=== PATIENT | male | born 1960 | race Caucasian/White ===

== ENCOUNTER 2020-07-31 19:36 | Inpatient (IN) | payer OTHER ==
--- NOTE | 2020-07-31 21:30 | PDOC ---
History of Present Illness - General Chief Complaint: Nausea Stated Complaint: SENT BY URGENT CARE Time Seen by Provider: 07/31/20 20:05 - History of Present Illness Initial Comments: 07/31/20 21:21 59M with remote history of hernia repair transfered from urgent care with concern for SBO. Patient states he ate spicy falafel two days ago, then began having abdominal pain, non-bloody vomiting, chills, sweating. These symptoms r esolved, but he has felt increasingly bloated and noticed abdominal distension. Passing gas and having normal bowel movements, last one was earlier this afternoon. Able to tolerate solids and liquids in small quantities. PMH/PSH: as above Meds: statin, finasteride Allergies: amoxicillin ROS GENERAL/CONSTITUTIONAL: No fever or chills. No weakness. HEAD, EYES, EARS, NOSE AND THROAT: No change in vision. No ear pain or discharge. No sore throat. CARDIOVASCULAR: No chest pain or shortness of breath RESPIRATORY: No cough, wheezing, or hemoptysis. GASTROINTESTINAL: No nausea, vomiting, diarrhea or constipation. bloating GENITOURINARY: No dysuria, frequency, or change in urination. MUSCULOSKELETAL: No joint or muscle swelling or pain. No neck or back pain. SKIN: No rash NEUROLOGIC: No headache, vertigo, loss of consciousness, or change in strength/sensation. ENDOCRINE: No increased thirst. No abnormal weight change HEMATOLOGIC/LYMPHATIC: No anemia, easy bleeding, or history of blood clots. ALLERGIC/IMMUNOLOGIC: No hives or skin allergy. PE GENERAL: Awake, alert, and fully oriented, in no acute distress HEAD: No signs of trauma, normocephalic, atraumatic EYES: PERRLA, EOMI, sclera anicteric, conjunctiva clear ENT: Auricles normal inspection, hearing grossly normal, nares patent, oropharynx clear without exudates. Moist mucosa NECK: Normal ROM, supple, no lymphadenopathy, JVD, or masses LUNGS: No distress, speaks full sentences, clear to auscultation bilaterally HEART: Regular rate and rhythm, normal S1 and S2, no murmurs, rubs or gallops, peripheral pulses normal and equal bilaterally. ABDOMEN: Soft, distended, epigastric tenderness without guarding or rebound EXTREMITIES : Normal inspection, Normal range of motion, no edema. No clubbing or cyanosis. NEUROLOGICAL: Cranial nerves II through XII grossly intact. Normal speech, normal gait, no focal sensorimotor deficits SKIN: Warm, Dry, normal turgor, no rashes or lesions noted Vital Signs Temp Pulse Resp BP Pulse Ox 97.8 F 89 19 141/94 98 07/31/20 19:40 07/31/20 19:40 07/31/20 19:40 07/31/20 19:40 07/31/20 19:40 59M with remote history of hernia repair transfered from urgent care with concern for SBO. Exam notable for abdominal distension and epigastric tenderness. Patient comes with labs from urgent care showing normal kidney function and no white count. Will r/o SBO. DDx also includes gastroenteritis, ne phrolithiasis, pancreatitis -EKG -CBC, CMP, coags, UA, T&S -CT A/P with oral and IV contrast 07/31/20 22:26 EKG: NSR, rate 93, normal axis, QTc 457, no ischemic ST-T changes Labs: notable for Hgb 17.3 (likley hemoconcentrated in the setting of decreased PO intake), total bilirubin 1.5 Laboratory Tests 07/31/20 07/31/20 07/31/20 21:00 21:00 21:00 WBC 6.5 RBC 5.53 Hgb 17.3 H Hct 49.2 H MCV 89.0 MCH 31.3 MCHC 35.2 RDW 13.1 Plt Count 208 MPV 8.8 Absolute Neuts (auto) 4.5 Neutrophils % 69.2 Lymphocytes % 15.2 Monocytes % 14.2 H Eosinophils % 0.9 Basophils % 0.5 Nucleated RBC % 0 PT with INR 12.70 INR 1.08 PTT (Actin FS) 28.2 Sodium 138 Potassium 4.0 Chloride 103 Carbon Dioxide 28 Anion Gap 7 L BUN 17.5 Creatinine 0.8 Est GFR (CKD-EPI)AfAm 111.74 Est GFR (CKD-EPI)NonAf 96.41 Random Glucose 98 Calcium 9.2 Total Bilirubin 1.5 H AST 16 ALT 24 Alkaline Phosphatase 101 Total Protein 7.1 Albumin 4.0 Lipase 90 07/31/20 22:46 1000ml IVF bolus Pepcid, Zofran 08/01/20 00:00 IMPRESSION: A high-grade distal small bowel obstruction is noted with a tr ansition area within the right lower quadrant. Distal ileal bowel loops demonstrate a collapsed appearance. Possible mild mesenteric edema. A small amount of mesenteric fluid accumulation is seen. There is also a small amount of free fluid within the lower pelvis. Mild sigmoid diverticulosis is noted without CT evidence of acute diverticulitis. Several subcentimeter hepatic hypodense foci are noted possibly representing cysts. Correlate with nonemergent sonography. Moderate atherosclerotic aortic wall calcifications. Correlate with clinical risk factors. 08/01/20 00:[address] Jones who will evaluate the patient in the morning. Recommended NG-tube, suction, NPO NG tube place Pending x-ray for confirmation Signed out to admitting team Past History - Medical History Allergies/Adverse Reactions: Allergies Allergy/AdvReac Type Severity Reaction Status Date / Time amoxicillin Allergy Verified 07/31/20 21:14 COPD: No - Psycho-Social/Smoking History Smoking History: Never smoked - Substance Abuse Hx (Audit-C & DAST Scrn) How often the patient has a drink containing alcohol: Monthly or less How often the patient has six or more drinks on one occasion: Less than monthly Score: In Men: 4 or > Positive; In Women: 3 or > Positive: 2 Screen Result (Pos requires Nsg. Audit-10AR): Negative In the last yr the pt used illegal drug/Rx for NonMed reason: No Score: Yes response is considered Positive: 0 Screen Result (Positive result requires Nsg. DAST-10): Negative *Physical Exam - Vital Signs Last Vital Signs Temp Pulse Resp BP Pulse Ox 97.8 F 89 19 141/94 98 07/31/20 19:40 07/31/20 19:40 07/31/20 19:40 07/31/20 19:40 07/31/20 19:40 ED Treatment Course - LABORATORY CBC & Chemistry Diagram: 07/31/20 21:00 07/31/20 21:00 - RADIOLOGY Radiology Studies Ordered: Category Date Time Status ABDOMEN & PELVIS CT WITH CONTR [CT] Stat CT Scan 07/31/20 20:29 Ordered Discharge - Discharge Information Problems reviewed: Yes Clinical Impression/Diagnosis: SBO (small bowel obstruction) Condition: Guarded - Follow up/Referral - Patient Discharge Instructions - Post Discharge Activity
[2020-07-31 21:35] LABS: BASO % 0.5 % (0-2.0); EOS % 0.9 % (0-4.5); HEMATOCRIT 49.2 % (35.4-49); HEMOGLOBIN 17.3 GM/dL (11.7-16.9); LYMPH % 15.2 % (8-40); MCH 31.3 pg (25.7-33.7); MCHC 35.2 g/dl (32.0-35.9); MEAN PLT VOLUME 8.8 fl (7.5-11.1); MONO % 14.2 % (3.8-10.2); NEUT % 69.2 % (42.8-82.8); PLATELET COUNT 208 K/MM3 (134-434); RBC 5.53 M/mm3 (4.00-5.60); RDW 13.1 % (11.9-15.9); WHITE BLOOD COUNT 6.5 K/mm3 (4.0-10.0)
[2020-07-31 21:43] LABS: INR 1.08 (0.83-1.09); PROTHROMBIN TIME (PATIENT) 12.7 SEC (9.7-13.0)
[2020-07-31 21:46] LABS: ACTIVATED PTT 28.2 SECONDS (25.2-36.5)
[2020-07-31 22:03] LABS: BILIRUBIN,TOTAL 1.5 mg/dL (0.2-1); BLOOD UREA NITROGEN 17.5 mg/dL (7-18); CALCIUM 9.2 mg/dL (8.5-10.1); CREATININE 0.8 mg/dL (0.55-1.3); TOT PROT 7.1 g/dl (6.4-8.2)
[2020-07-31] MEDS ORDERED: FAMOTIDINE 20 MG/50 ML IVPB 20 MG/50 ML MG IVPB ONE ×2 (22:10→22:51)
[2020-07-31] MEDS ORDERED: LACTATED RINGERS SOLUTION 1000 ML INFUS.BAG IV ONE (22:10)
[2020-07-31] MEDS ORDERED: ONDANSETRON 4 MG/2 ML VIAL IVPUSH ONE (22:10)
--- NOTE | 2020-07-31 22:13 | PDOC ---
Documentation entered by Tiffany Doll SCRIBE, acting as scribe for Kalpana Jiang DO. Kalpana Jiang, DO: This documentation has been prepared by the Lavon leon Brenda, SCRIBE, under my direction and personally reviewed by me in its entirety. I confirm that the documentation accurately reflects all work, treatment, procedures, and medical decision making performed by me. Attending Attestation - Resident Resident Name: HerlindaPollo - ED Attending Attestation I have performed the following: I have examined & evaluated the patient, The case was reviewed & discussed with the resident, I agree w/resident's findings & plan, Exceptions are as noted - HPI HPI: 07/31/20 22:46 The patient is a 59 year old male with a significant PMH of hernia repair who presents to the ED from urgent care to rule out SBO. Patient notes that he had some spicy foods 2 days ago and began experiencing abdominal pain, NBNB vomiting, nausea and chills/sweating that have now subsided. He also endorses feeling bloated and his abdomen distended. Endorses normal PO intake and bowel movements/flatulence. Allergies: Amoxicillin - Physicial Exam PE: 07/31/20 22:13 GENERAL: Awake, alert, and fully oriented, in no acute distress NECK: Normal ROM, supple, no lymphadenopathy, JVD, or masses LUNGS: Breath sounds equal, clear to auscultation bilaterally. No wheezes, and no crackles HEART: Regular rate and rhythm, normal S1 and S2, no murmurs, rubs or gallops ABDOMEN: (+) Distended (+) Tympanitic (+) Mild diffuse tenderness Soft, normoactive bowel sounds. No guarding, no rebound. No masses EXTREMITIES: Normal range of motion, no edema. No clubbing or cyanosis. No cords, erythema, or tenderness NEUROLOGICAL: Cranial nerves II through XII grossly intact. Normal speech. SKIN: Warm, Dry, normal turgor, no rashes or lesions noted. - Medical Decision Making 07/31/20 22:11 a/p: 59yo male with abd pain -pain x 2 days -passing flatus and stool - normal bm -vomiting yesterday -sent from urgent care for eval of poss sbo -labs from urgent care reviewed -ct with contrast ordered -drinking contrast -will send labs, ct -will keep npo pending ct imaging 07/31/20 23:08 pt with a high grade sbo with transition point in the RLQ 07/31/20 23:[address] Jones who agrees with the plan will microblog symphony for admission 07/31/20 23:25 case discussed with SYMPHONY who accepts pt to service Heart Score/ECG Review - ECG Intrepretation Comment:: 07/31/20 22:19 sinus at 93, nl axis, nl interval, q waves inferior leads which are age indeterminate, q waves lateral leads which are age indeterminate, no acute st/t wave findings Discharge - Discharge Information Problems reviewed: Yes Clinical Impression/Diagnosis: SBO (small bowel obstruction) Condition: Guarded - Admission Yes - Follow up/Referral Referrals: Chris Lopez MD [Primary Care Provider] - - Patient Discharge Instructions - Post Discharge Activity
[2020-07-31] MEDS ORDERED: LIDOCAINE HCL 2% JELLY (30 ML/TUBE) TP ONE (23:09)
[2020-07-31] MEDS ORDERED: LIDOCAINE VISCOUS 2% ORAL/TOP 20 ML UNIT-DOSE CUP ONE (23:25)
--- NOTE | 2020-08-01 00:08 | PN ---
Teaching Attending Note Name of Resident: Daniel Ellis ATTENDING PHYSICIAN STATEMENT I saw and evaluated the patient. I reviewed the resident's note and discussed the case with the resident. I agree with the resident's findings and plan as documented. SUBJECTIVE: 59 y/o M with PMHx HLD presents with c/c worsening bloating adm w/ SBO. OBJECTIVE: VS: Afebrile BP 141/94 Labs: WBC 6.5 H/H 17.3/49 Plt 208 Na 138 K 4.0 BUN/Creat 17.5/0.8 CT: High grade distal small bowel obstruction with transition area within the right lower quadrant. ASSESSMENT AND PLAN: SBO NPO IV LR @ 83cc/hr Surgery consulted NGT to suction Monitor BMP for electrolytes K, Mg Serial abdominal exams HLD Hold PO Meds Supp care: Diet NPO
--- NOTE | 2020-08-01 00:25 | HP ---
CHIEF COMPLAINT: Bloating and vomiting PCP: Zhao at [facility] HISTORY OF PRESENT ILLNESS: Mr. Mondragon is a pleasant 59M w a pmh of HLD and a RLQ hernia repair ~20 years ago, reporting to the ED at the behest of urgent care for a suspected sbo. The patient reported visiting a [facility] place on tuesday for lunch. He had ordered a spicy meal and later that night felt as if the meal had not sat well with him as if he was not able to digest the food. He developed an unusual sensation of bloating and stomach ache and had induced vomiting later that evening. The patient had taken one alkaseltzer to mediate further bloating but it had no affect. The patient had woken up in the middle of the night on tuesday in a cold sweat and reportedly projectile vomiting onto the ground. The patient was recommended by his to visit an urgent care to evaluate his symptoms. At the urgent care, he received an abdominal xray which revealed suspicion for SBO and was advised to visit the emergency department. In [facility] ED the patient was evaluated with a CTAP and was found to have a high grade distal sbo with a trans ition area in the RLQ and distal ileal bowel loop shows collapsed appearance. An NG tube was set in place and Dr. Jones was notified of the case. The patient reports diaphoresis and bloating with one episode of a small bowel movement in the AM. He states hes seen no change in bowel habits recently. He is also capable of ingesting a light meal earlier in the day without nausea or vomiting. The patient endorses mild nausea and abdominal bloating. He denies headache, chest pain, shortness of breath, diarrhea, and constipation. Recent Travel: denies PAST MEDICAL HISTORY: PAST SURGICAL HISTORY: Social History: Smoking: no Alcohol: no Drugs: no Allergies amoxicillin Allergy (Verified 07/31/20 21:14) HOME MEDICATIONS: REVIEW OF SYSTEMS CONSTITUTIONAL: Absent: fever, chills, diaphoresis, generalized weakness, malaise, loss of appetite, weight change HEENT: Absent: rhinorrhea, nasal congestion, throat pain, throat swelling, difficulty swallowing, mouth swelling, ear pain, eye pain, visual changes CARDIOVASCULAR: Absent: chest pain, syncope, palpitations, irregular heart rate, lightheadedness, peripheral edema RESPIRATORY: Absent: cough, shortness of breath, dyspnea with exertion, orthopnea, wheezing, stridor, hemoptysis GASTROINTESTINAL: Absent: abdominal pain, abdominal distension, nausea, vomiting, diarrhea, constipation, melena, hematochezia GENITOURINARY: Absent: dysuria, frequency, urgency, hesitancy, hematuria, flank pain, genital pain PHYSICAL EXAMINATION Vital Signs - 24 hr 07/31/20 19:40 Temperature 97.8 F Pulse Rate 89 Respiratory 19 Rate Blood Pressure 141/94 O2 Sat by Pulse 98 Oximetry (%) GENERAL: Awake, alert, and fully oriented, in no acute distress. HEAD: Normal with no signs of trauma. LUNGS: Breath sounds equal, clear to auscultation bilaterally. No wheezes, and no crackles. No accessory muscle use. HEART: Regular rate and rhythm, normal S1 and S2 without murmur, rub or gallop. ABDOMEN: bloating/distension, abdominal ache in lower left quadrant, absent bowel sounds in all 4 quadrants. LOWER EXTREMITIES: 2+ pulses, warm, well-perfused. No calf tenderness. No peripheral edema. Laboratory Results - last 24 hr 07/31/20 07/31/20 07/31/20 21:00 21:00 21:00 WBC 6.5 RBC 5.53 Hgb 17.3 H Hct 49.2 H MCV 89.0 MCH 31.3 MCHC 35.2 RDW 13.1 Plt Count 208 MPV 8.8 Absolute Neuts (auto) 4.5 Neutrophils % 69.2 Lymphocytes % 15.2 Monocytes % 14.2 H Eosinophils % 0.9 Basophils % 0.5 Nucleated RBC % 0 PT with INR 12.70 INR 1.08 PTT (Actin FS) 28.2 Sodium 138 Potassium 4.0 Chloride 103 Carbon Dioxide 28 Anion Gap 7 L BUN 17.5 Creatinine 0.8 Est GFR (CKD-EPI)AfAm 111.74 Est GFR (CKD-EPI)NonAf 96.41 Random Glucose 98 Calcium 9.2 Total Bilirubin 1.5 H AST 16 ALT 24 Alkaline Phosphatase 101 Total Protein 7.1 Albumin 4.0 Lipase 90 Blood Type Antibody Screen 07/31/20 21:00 WBC RBC Hgb Hct MCV MCH MCHC RDW Plt Count MPV Absolute Neuts (auto) Neutrophils % Lymphocytes % Monocytes % Eosinophils % Basophils % Nucleated RBC % PT with INR INR PTT (Actin FS) Sodium Potassium Chloride Carbon Dioxide Anion Gap BUN Creatinine Est GFR (CKD-EPI)AfAm Est GFR (CKD-EPI)NonAf Random Glucose Calcium Total Bilirubin AST ALT Alkaline Phosphatase Total Protein Albumin Lipase Blood Type B POSITIVE Antibody Screen Negative ASSESSMENT/PLAN: Mr. Mondragon is a pleasant 59M w a pmh of HLD and a RLQ hernia repair ~20 years ago, reporting to the ED at the behest of urgent care for a suspected sbo. #Small bowel obstruction - secondary to adhesions from hernia repair 20 years ago - CT scan reveals high grade distal small bowel obstruction with a transition area within the right lower quadrant. Distal ileal bowel loops demonstrate a collapsed appearance. A small amount of mesenteric fluid accumulation is seen. There is also a small amount of free fluid within the lower pelvis. Mild sigmoid diverticulosis is noted without CT evidence of acute diverticulitis. - LR at 100mls - NPO prior to surgery - Dr. Jones consulted - NG tube placed #HLD - resume home atorvastatin # FEN NPO LR follow up CBC/CMP/Mg/Phos #DVT ppx - SCDs #Advanced directive - full code ATTENDING PHYSICIAN STATEMENT I saw and evaluated the patient. I reviewed the resident's note and discussed the case with the resident. I agree with the resident's findings and plan as documented. SUBJECTIVE: OBJECTIVE: ASSESSMENT AND PLAN:
[2020-08-01] MEDS: LACTATED RINGERS SOLUTION 1,000 ML IV SCH (00:50)
[2020-08-01 03:31] VITALS: BMI 25.6
--- OUTSIDE RECORDS SUMMARY | 2020-08-01 04:39 | XMS ---
:1960 Author Organization [facility] Support Name Relationship Address Phone UE Unavailable Unavailable Unavailable UE Unavailable Unavailable Unavailable OLV[place] [address] Re-disclosure Warning The records that you are about to access may contain information from federally- assisted alcohol or drug abuse programs. If such information is present, then the following federally mandated warning applies: This information has been disclosed to you from records protected by federal confidentiality rules (42 CFR part 2). The federal rules prohibit you from making any further disclosure of this information unless further disclosure is expressly permitted by the written consent of the person to whom it pertains or as otherwise permitted by 42 CFR part 2. A general authorization for the release of medical or other information is NOT sufficient for this purpose. The Federal rules restrict any use of the information to criminally investigate or prosecute any alcohol or drug abuse patient.The records that you are about to access may contain highly sensitive health information, the redisclosure of which is protected by Article 27-F of the [facility] Public Health law. If you continue you may haveaccess to information: Regarding HIV / AIDS; Provided by facilities licensed or operated by the [facility] Office of Mental Health; or Provided by the [facility] Office for People With Developmental Disabilities. If such information is present, then the following [facility] mandated warning applies: This information has been disclosed to you from confidential records which are protected by state law. State law prohibits you from making any further disclosure of this information without the specific written consent of the person to whom it pertains, or as otherwise permitted by law. Any unauthorized further disclosure in violation of state law may result in a fine or half-way sentence or both. A general authorization for the release of medical or other information is NOT sufficient authorization for further disclosure. Insurance Providers Payer name Policy type Policy ID Covered Covered constitution party's Policy P tara / Coverage constitution party ID relationship to Gamble Inf ormation type gamble [employer] [id number] SP [id number] 01 [facility]
--- NOTE | 2020-08-01 10:04 | CONSULT ---
<Reji Malin P - Last Filed: 08/01/20 10:23> - Consultation REQUESTING PROVIDER: General Surgery - Cooper Jones CONSULT REQUEST: We have been asked to surgically evaluate this patient for SBO. Hospitalist: Hunter Moon NP HPI: Called to wendy 59 yo male with PMHx as noted below. Presents to [facility] ED after being evaluated at Urgent Care for ABD pain and suspected SBO. ABD pain began Tues evening after eating dinner. Developed bloating and associated with n/v (nbnb). States he awoke Wed. morning and projectile vomited x1. Only pertinent surgical history is hernia repair 20 years ago (region between umbilicus & suprapubic). States he's never experienced this before. NG tube i nserted in ED. This morning prior to going down for AXR, patient admits that he feels much better. Passing flatus and n/v resolved. While in the ED, he had the following imaging studies: 1. CTAP: high grade distal sbo with a transition area in the RLQ and distal ileal bowel loop shows collapsed appearance. 2. AXR: ng tube in good position. SBO w/ afl in dialted loops of SB . Contrast in the bladder. No free air. PMHx: HLD PSHx: Hernia repair (region between umbilicus & suprapubic) 20 years ago Home Med: Crestor 5 mg PO HS Allergies: Amoxicillin ROS:12 systems reviewed and considered negative except for what's contained in the HPI. PE: GENERAL: Awake, alert, and fully oriented, in no acute distress. HEAD: Normal with no signs of trauma. EYES: PERRL, sclera anicteric, conjunctiva clear. NECK: Normal ROM, supple without lymphadenopathy, JVD, or masses. LUNGS: Unlabored respirations on room air. Clear to auscultation bilat anteriorly. HEART: RRR ABD: Softly distended. BS absent. No guarding, no rebound, no masses. No organomegaly appreciated MUSCULOSKELETAL: No CVA tenderness. UE: 2+ pulses, warm, well-perfused. No cyanosis. Cap refill <2 seconds. No peripheral edema. LE: 2+ pulses, warm, well-perfused. No calf tenderness. No peripheral edema. NEUROLOGICAL: Normal speech, gait not observed. PSYCH: Cooperative. Good eye contact. Appropriate mood and affect. SKIN: Old surgical scar (transverse) in region between umbilicus and suprapubic region. Last Vital Signs Temp Pulse Resp BP Pulse Ox 99.3 F 76 18 141/80 97 08/01/20 06:00 08/01/20 06:00 08/01/20 03:22 08/01/20 06:00 08/01/20 06:00 CBC, BMP 07/31/20 21:00 07/31/20 21:00 Blood Type Blood Type B POSITIVE 07/31/20 21:00 Hepatic Panel Total Bilirubin 1.5 mg/dL (0.2-1) H 07/31/20 21:00 AST 16 U/L (15-37) 07/31/20 21:00 ALT 24 U/L (13-61) 07/31/20 21:00 Alkaline Phosphatase 101 U/L (45-117) 07/31/20 21:00 Albumin 4.0 g/dl (3.4-5.0) 07/31/20 21:00 Serology Test 08/01/20 00:28 SARS-CoV-2 (PCR) Negative A/P: 59 yo male admitted w/ SBO identified on CT scan 07/31. This morning, patient went down for AXR and still shows SBO however slight imporvement compared to CT scan yesterday. Patient passing flatus. Had large liquid bm upon returning from XR. N/V resolved and requesting NG tube to be removed. Covid negative. -NPO -If becomes n/v will need NG tube reinserted -Serial ABD exams -Serial AXRs -Replete elytes PRN -GI PPx -DVT PPx -CBC, BMP in AM -Medical optimization Above plan discussed with Dr. Jones and agrees. Problem List - Problems (1) SBO (small bowel obstruction) Code(s): K56.609 - UNSP INTESTNL OBST, UNSP TO PARTIAL VERSUS COMPLETE OBST Visit type - Case Type Case Type: ED Admission - Emergency Emergency Visit: Yes ED Registration Date: 07/31/20 Care time: The patient presented to the Emergency Department on the above date and was hospitalized for further evaluation of their emergent condition. - New patient This patient is new to me today: Yes Date on this admission: 08/01/20 <Cooper Jones - Last Filed: 08/02/20 10:32> - Consultation Attending Surgeon: I personally saw and examined the patient. My examination reveals a patient with a small bowel obstruction. I discussed the case with the surgical PA and agree with their findings and plan of care with any exceptions as noted. ~ Cooper Jones MD, FACS
[2020-08-01 10:21] LABS: URINE APPEARANCE CLEAR; URINE BILIRUBIN NEGATIVE (NEGATIVE); URINE COLOR YELLOW; URINE GLUCOSE (UA) NEGATIVE (NEGATIVE); URINE KETONE 3+ (NEGATIVE); URINE LEUK ESTERASE NEGATIVE (NEGATIVE); URINE NITRITE NEGATIVE (NEGATIVE); URINE PROTEIN TRACE (NEGATIVE); URINE UROBILINOGEN 0.2 mg/dL (0.2-1.0)
--- NOTE | 2020-08-01 10:32 | EKG ---
Test Reason : Blood Pressure : / mmHG Vent. Rate : 093 BPM Atrial Rate : 093 BPM P-R Int : 164 ms QRS Dur : 096 ms QT Int : 368 ms P-R-T Axes : 067 053 061 degrees QTc Int : 457 ms NORMAL SINUS RHYTHM POSSIBLE LATERAL INFARCT , AGE UNDETERMINED POSSIBLE INFERIOR INFARCT , AGE UNDETERMINED ABNORMAL ECG NO PREVIOUS ECGS AVAILABLE Confirmed by MILLICENT MANDEL MD ([id number]) on 08/01/2020 10:32:20 AM Referred By: Confirmed By:MILLICENT MANDEL MD
--- NOTE | 2020-08-01 11:01 | PN ---
Physical Exam: SUBJECTIVE: Patient seen and examined at the bedside. sitting up in the chair, denies abdominal pain only verbalizes "tenderness". denies nausea or vomiting. ngt removed today. patient had a soft bm today OBJECTIVE: Patient is a 59 year old male with a past medical history of hld and RLQ hernia repair ~20 years ago. He presents to the ED on 07/31/2020 from urgent care for suspected SBO. imaging: abd/pelvis CT w/contrast: high grade distal sbo. RLQ distal ileal bowel loops demonstrate collapsed appearance. small amt of mesenteric fluid seen. abdm xray, flat/upright: SBO Vital Signs Period Temp Pulse Resp BP Sys/Collier Pulse Ox Last 24 Hr 97.6 F-99.3 F 76-89 18-19 139-152/80-94 96-99 GENERAL: The patient is awake, alert, and fully oriented, in no acute distress. HEAD: Normal with no signs of trauma. EYES: PERRL, extraocular movements intact, sclera anicteric, conjunctiva clear. No ptosis. ENT: Ears normal, nares patent, oropharynx clear without exudates, moist mucous membranes. NECK: Trachea midline, full range of motion, supple. LUNGS: Breath sounds equal, clear to auscultation bilaterally HEART: Regular rate and rhythm ABDOMEN: soft, mildly distended, no pain on palpation, +hyperactive bowel sounds EXTREMITIES: 2+ pulses, warm, well-perfused, no edema. NEUROLOGICAL: Normal speech, gait not observed. PSYCH: Normal mood, normal affect. SKIN: Warm, dry, normal turgor, no rashes or lesions noted Laboratory Results - last 24 hr 07/31/20 07/31/20 07/31/20 09:45 21:00 21:00 WBC 6.5 RBC 5.53 Hgb 17.3 H Hct 49.2 H MCV 89.0 MCH 31.3 MCHC 35.2 RDW 13.1 Plt Count 208 MPV 8.8 Absolute Neuts (auto) 4.5 Neutrophils % 69.2 Lymphocytes % 15.2 Monocytes % 14.2 H Eosinophils % 0.9 Basophils % 0.5 Nucleated RBC % 0 PT with INR 12.70 INR 1.08 PTT (Actin FS) 28.2 Sodium Potassium Chloride Carbon Dioxide Anion Gap BUN Creatinine Est GFR (CKD-EPI)AfAm Est GFR (CKD-EPI)NonAf Random Glucose Calcium Total Bilirubin AST ALT Alkaline Phosphatase Total Protein Albumin Lipase Urine Color Yellow Urine Appearance Clear Urine pH 5.0 Ur Specific [place] 1.043 H Urine Protein Trace Urine Glucose (UA) Negative Urine Ketones 3+ H Urine Blood Negative Urine Nitrite Negative Urine Bilirubin Negative Urine Urobilinogen 0.2 Ur Leukocyte Esterase Negative SARS-CoV-2 (PCR) Blood Type Antibody Screen 07/31/20 07/31/20 08/01/20 21:00 21:00 00:28 WBC RBC Hgb Hct MCV MCH MCHC RDW Plt Count MPV Absolute Neuts (auto) Neutrophils % Lymphocytes % Monocytes % Eosinophils % Basophils % Nucleated RBC % PT with INR INR PTT (Actin FS) Sodium 138 Potassium 4.0 Chloride 103 Carbon Dioxide 28 Anion Gap 7 L BUN 17.5 Creatinine 0.8 Est GFR (CKD-EPI)AfAm 111.74 Est GFR (CKD-EPI)NonAf 96.41 Random Glucose 98 Calcium 9.2 Total Bilirubin 1.5 H AST 16 ALT 24 Alkaline Phosphatase 101 Total Protein 7.1 Albumin 4.0 Lipase 90 Urine Color Urine Appearance Urine pH Ur Specific [place] Urine Protein Urine Glucose (UA) Urine Ketones Urine Blood Urine Nitrite Urine Bilirubin Urine Urobilinogen Ur Leukocyte Esterase SARS-CoV-2 (PCR) Negative Blood Type B POSITIVE Antibody Screen Negative Active Medications Generic Name Dose Route Start Last Admin Trade Name Freq PRN Reason Stop Dose Admin Lactated Ringer's 1,000 mls @ 100 mls/hr 08/01/20 00:30 08/01/20 00:50 Lactated Ringers Solution IV 100 mls/hr ASDIR LIZ Administration ASSESSMENT/PLAN: Problem List - Problems (1) Abdominal pain Assessment/Plan: abdominal pain in the setting of SBO. abdominal pain now resolved with bowel rest. per surgery, keep NPO tylenol prn Code(s): R10.9 - UNSPECIFIED ABDOMINAL PAIN (2) SBO (small bowel obstruction) Assessment/Plan: abd/pelvis CT w/contrast: high grade distal sbo. RLQ distal ileal bowel loops demonstrate collapsed appearance. small amt of mesenteric fluid seen. abdm xray, flat/upright: SBO repeat abd xray in a.m. surgery to advance diet zofran prn, on ivf patient denies any abdominal pain or discomfort NGT removed today Code(s): K56.609 - UNSP INTESTNL OBST, UNSP TO PARTIAL VERSUS COMPLETE OBST (3) HLD (hyperlipidemia) Assessment/Plan: on crestor which is currently on hold for NPO status Code(s): E78.5 - HYPERLIPIDEMIA, UNSPECIFIED (4) DVT prophylaxis Assessment/Plan: SCDs Code(s): Z29.9 - ENCOUNTER FOR PROPHYLACTIC MEASURES, UNSPECIFIED Visit type - Emergency Visit Emergency Visit: Yes ED Registration Date: 07/31/20 Care time: The patient presented to the Emergency Department on the above date and was hospitalized for further evaluation of their emergent condition. - New Patient This patient is new to me today: Yes Date on this admission: 08/01/20 - Critical Care Critical Care patient: No - Discharge Referral Referred to [facility] Med P.C.: No
[2020-08-01] MEDS ORDERED: ACETAMINOPHEN 1000 MG/100 ML VIAL (NON FORMULARY) IVPB PRN (17:28)
[2020-08-01] MEDS ORDERED: ONDANSETRON 4 MG/2 ML VIAL IVPUSH PRN (17:29)
[2020-08-02] MEDS: LACTATED RINGERS SOLUTION 1,000 ML IV SCH (06:29)
[2020-08-02 08:10] LABS: BASO % 0.5 % (0-2.0); EOS % 1.5 % (0-4.5); HEMATOCRIT 40.5 % (35.4-49); LYMPH % 13.7 % (8-40); MCH 30.4 pg (25.7-33.7); MCHC 34.5 g/dl (32.0-35.9); MEAN PLT VOLUME 8.5 fl (7.5-11.1); MONO % 15.6 % (3.8-10.2); NEUT % 68.7 % (42.8-82.8); PLATELET COUNT 180 K/MM3 (134-434); RDW 12.8 % (11.9-15.9); WHITE BLOOD COUNT 4.6 K/mm3 (4.0-10.0)
[2020-08-02 08:33] LABS: ALBUMIN 3.1 g/dl (3.4-5.0); BLOOD UREA NITROGEN 12.1 mg/dL (7-18); CALCIUM 8.1 mg/dL (8.5-10.1); CREATININE 0.7 mg/dL (0.55-1.3); MAGNESIUM 1.7 mg/dL (1.8-2.4); PHOSPHOROUS 2.3 mg/dL (2.5-4.9); POTASSIUM 3.8 mmol/L (3.5-5.1); TOT PROT 5.6 g/dl (6.4-8.2)
[2020-08-02] MEDS ORDERED: MAGNESIUM OXIDE 400 MG TABLET (FP) PO ONE (08:38)
--- NOTE | 2020-08-02 10:39 | PN ---
Progress Note (short form) - Note Progress Note: Attending Surgeon No c/o; started on clear liquids last PM and tolerated; passing flatus and having liquid bowel movements VSS AF abdo-soft; NT; not distended tender and or tympanic Xrays reviewed and appear to be lagging behind the clinical picture IMP: resolving SBO PLAN: Advance diet and observe Cooper Jones MD FACS
--- NOTE | 2020-08-02 11:12 | PN ---
Physical Exam: SUBJECTIVE: Patient seen and examined. denies nausea/vomiting. had a few liquid bms overnight. OBJECTIVE: Patient is a 59 year old male with a past medical history of hld and RLQ hernia repair ~20 years ago. He presents to the ED on 07/31/2020 from urgent care for suspected SBO. See imaging below. imaging: abd/pelvis CT w/contrast: high grade distal sbo. RLQ distal ileal bowel loops demonstrate collapsed appearance. small amt of mesenteric fluid seen. abdm xray, flat/upright: SBO Vital Signs Period Temp Pulse Resp BP Sys/Collier Pulse Ox Last 24 Hr 98.4 F-99.0 F 65-96 18-18 121-140/74-86 94-99 GENERAL: The patient is awake, alert, and fully oriented, in no acute distress. HEAD: Normal with no signs of trauma. EYES: PERRL, extraocular movements intact, sclera anicteric, conjunctiva clear. No ptosis. ENT: Ears normal, nares patent, oropharynx clear without exudates, moist mucous membranes. NECK: Trachea midline, full range of motion, supple. LUNGS: Breath sounds equal, clear to auscultation bilaterally HEART: Regular rate and rhythm ABDOMEN: soft, mildly distended, no pain on palpation, +hyperactive bowel sounds EXTREMITIES: 2+ pulses, warm, well-perfused, no edema. NEUROLOGICAL: Normal speech, gait not observed. PSYCH: Normal mood, normal affect. SKIN: Warm, dry, normal turgor, no rashes or lesions noted Laboratory Results - last 24 hr 08/02/20 08/02/20 07:18 07:18 WBC 4.6 RBC 4.60 Hgb 14.0 Hct 40.5 D MCV 88.0 MCH 30.4 MCHC 34.5 RDW 12.8 Plt Count 180 MPV 8.5 Absolute Neuts (auto) 3.2 Neutrophils % 68.7 Lymphocytes % 13.7 Monocytes % 15.6 H Eosinophils % 1.5 Basophils % 0.5 Nucleated RBC % 0 Sodium 137 Potassium 3.8 Chloride 104 Carbon Dioxide 28 Anion Gap 5 L BUN 12.1 Creatinine 0.7 Est GFR (CKD-EPI)AfAm 118.05 Est GFR (CKD-EPI)NonAf 101.85 Random Glucose 75 Calcium 8.1 L Phosphorus 2.3 L Magnesium 1.7 L Total Bilirubin 1.0 AST 13 L ALT 17 Alkaline Phosphatase 75 Total Protein 5.6 L Albumin 3.1 L Active Medications Generic Name Dose Route Start Last Admin Trade Name Freq PRN Reason Stop Dose Admin Acetaminophen 1,000 mg 08/01/20 17:28 Ofirmev Injection - IVPB 08/02/20 17:28 Q6H PRN PAIN LEVEL 4 - 6 Lactated Ringer's 1,000 mls @ 100 mls/hr 08/01/20 00:30 08/02/20 06:29 Lactated Ringers Solution IV 100 mls/hr ASDIR LIZ Administration Ondansetron HCl 4 mg 08/01/20 17:29 08/02/20 03:12 Zofran Injection IVPUSH 4 mg Q6H PRN Administration NAUSEA ASSESSMENT/PLAN: Problem List - Problems (1) Abdominal pain Assessment/Plan: abdominal pain in the setting of SBO. abdominal pain now resolved with bowel rest. on full liquid diet. tylenol prn Code(s): R10.9 - UNSPECIFIED ABDOMINAL PAIN (2) SBO (small bowel obstruction) Assessment/Plan: abd/pelvis CT w/contrast: high grade distal sbo. RLQ distal ileal bowel loops demonstrate collapsed appearance. small amt of mesenteric fluid seen. abdm xray, flat/upright: SBO repeat abd xray again in a.m. surgery to advance diet zofran prn, on ivf patient denies any abdominal pain or discomfort Code(s): K56.609 - UNSP INTESTNL OBST, UNSP TO PARTIAL VERSUS COMPLETE OBST (3) HLD (hyperlipidemia) Assessment/Plan: on crestor which is currently on hold until patient fully able to tolerate diet. Code(s): E78.5 - HYPERLIPIDEMIA, UNSPECIFIED (4) DVT prophylaxis Assessment/Plan: SCDs Code(s): Z29.9 - ENCOUNTER FOR PROPHYLACTIC MEASURES, UNSPECIFIED Visit type - Emergency Visit Emergency Visit: Yes ED Registration Date: 07/31/20 Care time: The patient presented to the Emergency Department on the above date and was hospitalized for further evaluation of their emergent condition. - New Patient This patient is new to me today: No - Critical Care Critical Care patient: No - Discharge Referral Referred to [facility] Med P.C.: No
[2020-08-02] MEDS ORDERED: LACTATED RINGERS SOLUTION 1,000 ML/1,000 ML INFUS.BAG IV SCH (17:15)
[2020-08-02] MEDS ORDERED: ACETAMINOPHEN 1000 MG/100 ML VIAL (NON FORMULARY) IVPB PRN (17:51)
[2020-08-02] MEDS ORDERED: FAMOTIDINE 20 MG/50 ML IVPB 20 MG/50 ML MG IVPB ONE (17:57)
[2020-08-02] MEDS: LORazepam 2 MG/ML SDV VIAL IVPUSH PRN (21:36)
[2020-08-02] MEDS: FAMOTIDINE 20 MG/50 ML IVPB 20 MG/50 ML MG IVPB SCH (21:36)
[2020-08-03 08:22] LABS: BASO % 0.4 % (0-2.0); HEMATOCRIT 40.4 % (35.4-49); HEMOGLOBIN 14.2 GM/dL (11.7-16.9); MCH 30.9 pg (25.7-33.7); MCHC 35.1 g/dl (32.0-35.9); MEAN PLT VOLUME 8.2 fl (7.5-11.1); MONO % 13.6 % (3.8-10.2); PLATELET COUNT 194 K/MM3 (134-434); RDW 12.8 % (11.9-15.9); WHITE BLOOD COUNT 5.6 K/mm3 (4.0-10.0)
[2020-08-03 08:43] LABS: ALBUMIN 3.3 g/dl (3.4-5.0); BLOOD UREA NITROGEN 9.3 mg/dL (7-18); CALCIUM 8.4 mg/dL (8.5-10.1); CREATININE 0.7 mg/dL (0.55-1.3); POTASSIUM 3.8 mmol/L (3.5-5.1); TOT PROT 5.8 g/dl (6.4-8.2)
[2020-08-03] MEDS: FAMOTIDINE 20 MG/50 ML IVPB 20 MG/50 ML MG IVPB SCH ×2 (10:18→22:23)
--- NOTE | 2020-08-03 11:28 | PN ---
Physical Exam: SUBJECTIVE: Patient seen and examined at the bedside. overnight developed abdominal bloating after eating full liquid diet (pea soup). abdominal distention was uncomfortable and he was kept NPO after. abdominal xray done this am. shows persistent SBO. OBJECTIVE: Patient is a 59 year old male with a past medical history of hld and RLQ hernia repair apx 20 years ago. He presents to the ED on 07/31/2020 from urgent care for suspected SBO. imagin/1 abd/pelvis CT w/contrast: high grade distal sbo. RLQ distal ileal bowel loops demonstrate collapsed appearance. small amt of mesenteric fluid seen. 08/01: abdominal xray (flat and upright): SBO 08/02: abdominal xray (flat and upright): SBO or high grade partial sbo 08/03: SBO or high grade sbo Period Temp Pulse Resp BP Sys/Collier Pulse Ox Last 24 Hr 98.4 F-99.7 F 73-83 18-18 110-125/52-78 96-97 GENERAL: The patient is awake, alert, and fully oriented, in no acute distress. HEAD: Normal with no signs of trauma. EYES: PERRL, extraocular movements intact, sclera anicteric, conjunctiva clear. No ptosis. ENT: Ears normal, nares patent, oropharynx clear without exudates, moist mucous membranes. NECK: Trachea midline, full range of motion, supple. LUNGS: Breath sounds equal, clear to auscultation bilaterally HEART: Regular rate and rhythm ABDOMEN: soft, mildly distended, some tenderness on palpation, +hyperactive bowel sounds EXTREMITIES: 2+ pulses, warm, well-perfused, no edema. NEUROLOGICAL: Normal speech, gait not observed. PSYCH: Normal mood, normal affect. SKIN: Warm, dry, normal turgor, no rashes or lesions noted Laboratory Results - last 24 hr 08/03/20 08/03/20 07:25 07:25 WBC 5.6 RBC 4.60 Hgb 14.2 Hct 40.4 MCV 88.0 MCH 30.9 MCHC 35.1 RDW 12.8 Plt Count 194 MPV 8.2 Absolute Neuts (auto) 3.2 Neutrophils % 57.0 Lymphocytes % 27.0 D Monocytes % 13.6 H Eosinophils % 2.0 Basophils % 0.4 Nucleated RBC % 0 Sodium 140 Potassium 3.8 Chloride 105 Carbon Dioxide 28 Anion Gap 6 L BUN 9.3 Creatinine 0.7 Est GFR (CKD-EPI)AfAm 118.05 Est GFR (CKD-EPI)NonAf 101.85 Random Glucose 69 L Calcium 8.4 L Magnesium 2.0 Total Bilirubin 1.0 AST 18 ALT 28 Alkaline Phosphatase 74 Total Protein 5.8 L Albumin 3.3 L Active Medications Generic Name Dose Route Start Last Admin Trade Name Freq PRN Reason Stop Dose Admin Acetaminophen 1,000 mg 08/02/20 17:51 Ofirmev Injection - IVPB 08/03/20 17:51 Q6H PRN PAIN LEVEL 4 - 6 Lactated Ringer's 1,000 ml in 1,000 mls @ 125 mls/hr 08/02/20 17:15 08/02/20 18:42 Lactated Ringers Solution IV 125 mls/hr ASDIR LIZ Administration Famotidine/Sodium Chloride 20 mg in 50 mls @ 100 mls/hr 08/02/20 22:00 08/03/20 10:18 Pepcid 20 Mg Premixed Ivpb - IVPB 100 mls/hr BID LIZ Administration Lorazepam 0.5 mg 08/02/20 17:52 08/02/20 21:36 Ativan Injection - IVPUSH 0.5 mg Q6H PRN Administration ANXIETY Ondansetron HCl 4 mg 08/01/20 17:29 08/02/20 03:12 Zofran Injection IVPUSH 4 mg Q6H PRN Administration NAUSEA ASSESSMENT/PLAN: Problem List - Problems (1) Abdominal pain Assessment/Plan: abdominal pain in the setting of SBO. abdominal pain now resolved with bowel rest. patient tolerated liquid diet on 08/01, advanced to full liquid diet on 08/02, but developed abdominal discomfort and distention soon after. now back to NPO status. will start on clinimax since NPO > 3 days. tylenol prn Code(s): R10.9 - UNSPECIFIED ABDOMINAL PAIN (2) SBO (small bowel obstruction) Assessment/Plan: abd/pelvis CT w/contrast: high grade distal sbo. RLQ distal ileal bowel loops demonstrate collapsed appearance. small amt of mesenteric fluid seen. abdm xray, flat/upright 08/03: SBO repeat abd xray again in a.m. surgery to advance diet as tolerated zofran prn, on ivf patient denies any abdominal pain or discomfort on day 3 of NPO status, will start clinimax Code(s): K56.609 - UNSP INTESTNL OBST, UNSP TO PARTIAL VERSUS COMPLETE OBST (3) HLD (hyperlipidemia) Assessment/Plan: on crestor which is currently on hold until patient fully able to tolerate diet. Code(s): E78.5 - HYPERLIPIDEMIA, UNSPECIFIED (4) DVT prophylaxis [facility] Code(s): Z29.9 - ENCOUNTER FOR PROPHYLACTIC MEASURES, UNSPECIFIED Visit type - Emergency Visit Emergency Visit: Yes ED Registration Date: 07/31/20 Care time: The patient presented to the Emergency Department on the above date and was hospitalized for further evaluation of their emergent condition. - New Patient This patient is new to me today: No - Critical Care Critical Care patient: No - Discharge Referral Referred to [facility] Med P.C.: No
--- NOTE | 2020-08-03 16:05 | PN ---
Progress Note (short form) - Note Progress Note: Attending Surgeon Seen in f/u; he regressed last night after eating pea soup which made him "gassy"; he states he is till passing gas and have bowel movements. VSS AF abdo-soft and non tender; non distended; slightly tympanitic AXR-some air in colo; some a/f levels IMP: SBO PLAN: NPO; serial xarys and exams; d/w the patient in depth. Cooper Jones MD FACS
[2020-08-03] MEDS: AMINO ACIDS 4.25%/D5W 1,000 ML IV SCH (17:17)
[2020-08-03] MEDS: LORazepam 2 MG/ML SDV VIAL IVPUSH PRN (22:23)
[2020-08-04] MEDS: AMINO ACIDS 4.25%/D5W 1,000 ML IV SCH ×2 (04:15→14:46)
[2020-08-04 08:19] LABS: BASO % 0.8 % (0-2.0); EOS % 2.4 % (0-4.5); HEMATOCRIT 38.1 % (35.4-49); HEMOGLOBIN 13.5 GM/dL (11.7-16.9); LYMPH % 29.1 % (8-40); MCH 30.8 pg (25.7-33.7); MCHC 35.5 g/dl (32.0-35.9); MEAN CELL VOLUME 86.8 fl (80-96); MEAN PLT VOLUME 8.3 fl (7.5-11.1); MONO % 11.7 % (3.8-10.2); PLATELET COUNT 191 K/MM3 (134-434); RBC 4.39 M/mm3 (4.00-5.60); RDW 12.8 % (11.9-15.9); WHITE BLOOD COUNT 4.9 K/mm3 (4.0-10.0)
[2020-08-04 08:47] LABS: ALBUMIN 2.8 g/dl (3.4-5.0); BILIRUBIN,TOTAL 0.5 mg/dL (0.2-1); BLOOD UREA NITROGEN 11.9 mg/dL (7-18); CALCIUM 8.3 mg/dL (8.5-10.1); CREATININE 0.5 mg/dL (0.55-1.3); MAGNESIUM 1.9 mg/dL (1.8-2.4); POTASSIUM 3.6 mmol/L (3.5-5.1); TOT PROT 5.4 g/dl (6.4-8.2)
--- NOTE | 2020-08-04 10:14 | PN ---
Physical Exam: SUBJECTIVE: Patient seen and examined. for a gi small bowel series today. seen by surgery. patient denies any further abdominal pain, no nausea or vomiting. he is ambulating around pod with a steady gait. feels hungry and wants to eat + flatus OBJECTIVE: Patient is a 59 year old male with a past medical history of hld and RLQ hernia repair apx 20 years ago. He presents to the ED on 07/31/2020 from urgent care for suspected SBO. imaging 07/31 abd/pelvis CT w/contrast: high grade distal sbo. RLQ distal ileal bowel loops demonstrate collapsed appearance. small amt of mesenteric fluid seen. 08/01: abdominal xray (flat and upright): SBO 08/02: abdominal xray (flat and upright): SBO or high grade partial sbo 08/03: SBO or high grade sbo 08/04: partial sbo Vital Signs Period Temp Pulse Resp BP Sys/Collier Pulse Ox Last 24 Hr 98.4 F-98.7 F 76-80 18-20 118-128/73-76 89-98 GENERAL: The patient is awake, alert, and fully oriented, in no acute distress. HEAD: Normal with no signs of trauma. EYES: PERRL, extraocular movements intact, sclera anicteric, conjunctiva clear. No ptosis. ENT: Ears normal, nares patent, oropharynx clear without exudates, moist mucous membranes. NECK: Trachea midline, full range of motion, supple. LUNGS: Breath sounds equal, clear to auscultation bilaterally HEART: Regular rate and rhythm ABDOMEN: soft, not distended, no tenderness on palpation, + bowel sounds EXTREMITIES: 2+ pulses, warm, well-perfused, no edema. NEUROLOGICAL: Normal speech, gait not observed. PSYCH: Normal mood, normal affect. SKIN: Warm, dry, normal turgor, no rashes or lesions noted Laboratory Results - last 24 hr 08/04/20 08/04/20 07:33 07:33 WBC 4.9 RBC 4.39 Hgb 13.5 Hct 38.1 MCV 86.8 MCH 30.8 MCHC 35.5 RDW 12.8 Plt Count 191 MPV 8.3 Absolute Neuts (auto) 2.7 Neutrophils % 56.0 Lymphocytes % 29.1 Monocytes % 11.7 H Eosinophils % 2.4 Basophils % 0.8 Nucleated RBC % 0 Sodium 141 Potassium 3.6 Chloride 107 Carbon Dioxide 27 Anion Gap 7 L BUN 11.9 Creatinine 0.5 L Est GFR (CKD-EPI)AfAm 135.56 Est GFR (CKD-EPI)NonAf 116.96 Random Glucose 92 Calcium 8.3 L Magnesium 1.9 Total Bilirubin 0.5 AST 14 L ALT 23 Alkaline Phosphatase 65 Total Protein 5.4 L Albumin 2.8 L Active Medications Generic Name Dose Route Start Last Admin Trade Name Freq PRN Reason Stop Dose Admin Famotidine/Sodium Chloride 20 mg in 50 mls @ 100 mls/hr 08/02/20 22:00 08/03/20 22:23 Pepcid 20 Mg Premixed Ivpb - IVPB 100 mls/hr BID LIZ Administration Amino Acids 1,000 mls @ 84 mls/hr 08/03/20 15:15 08/04/20 04:15 Clinimix - IV 84 mls/hr Q12H LIZ Administration Lorazepam 0.5 mg 08/02/20 17:52 08/03/20 22:23 Ativan Injection - IVPUSH 0.5 mg Q6H PRN Administration ANXIETY Ondansetron HCl 4 mg 08/01/20 17:29 08/02/20 03:12 Zofran Injection IVPUSH 4 mg Q6H PRN Administration NAUSEA ASSESSMENT/PLAN: Problem List - Problems (1) Abdominal pain Assessment/Plan: abdominal pain in the setting of SBO. abdominal pain now resolved with bowel rest. patient tolerated liquid diet on 08/01, advanced to full liquid diet on 08/02, but developed abdominal discomfort and distention soon after. now back to NPO status. He is for a gi series today per surgery. diet to be started pending test results. on clinimax since NPO > 3 days. tylenol prn Code(s): R10.9 - UNSPECIFIED ABDOMINAL PAIN (2) SBO (small bowel obstruction) Assessment/Plan: abd/pelvis CT w/contrast: high grade distal sbo. RLQ distal ileal bowel loops demonstrate collapsed appearance. small amt of mesenteric fluid seen. abdm xray, flat/upright 08/04: partial SBO surgery to advance diet as tolerated zofran prn, on ivf patient denies any abdominal pain or discomfort on clinimax Code(s): K56.609 - UNSP INTESTNL OBST, UNSP TO PARTIAL VERSUS COMPLETE OBST (3) HLD (hyperlipidemia) Assessment/Plan: on crestor which is currently on hold until patient fully able to tolerate diet. Code(s): E78.5 - HYPERLIPIDEMIA, UNSPECIFIED (4) DVT prophylaxis Assessment/Plan: SCDs ambulates Code(s): Z29.9 - ENCOUNTER FOR PROPHYLACTIC MEASURES, UNSPECIFIED Visit type - Emergency Visit Emergency Visit: Yes ED Registration Date: 07/31/20 Care time: The patient presented to the Emergency Department on the above date and was hospitalized for further evaluation of their emergent condition. - New Patient This patient is new to me today: No - Critical Care Critical Care patient: No - Discharge Referral Referred to [facility] Med [facility]C.: No
--- NOTE | 2020-08-04 10:55 | PN ---
Progress Note (short form) - Note Progress Note: SURGERY 59yo M h/o sbo, pt seen and examined at bedside. Pt currently NPO and denies abd pain, n/v, fever, chills. Pt states that he feels hungry. Last Vital Signs Temp Pulse Resp BP Pulse Ox 98.2 F 64 20 133/69 97 08/04/20 10:00 08/04/20 10:00 08/04/20 10:00 08/04/20 10:00 08/04/20 10:00 CBC, BMP 08/04/20 07:33 08/04/20 07:33 PE: Gen: A&O x3 Resp: breathing comfortably ABd: soft, non tender, nondistended Ext: no edema. Abd xray: unchanged, persistant sbo <Rafi Torrez - Last Filed: 08/04/20 10:48> - Note Progress Note: Attending Surgeon: I personally saw and examined the patient. My examination reveals a patient with a small bowel obstruction. I discussed the case with the surgical PA and agree with their findings and plan of care with any exceptions as noted. ~ Cooper Jones MD, FACS <Cooper Jones - Last Filed: 08/08/20 16:21> Problem List - Problems (1) SBO (small bowel obstruction) Assessment/Plan: Plan -pt x-ray continues to be concerning, will get upper GI series with small bowel follow through -continue NPO for now -IVF Pt discussed with Dr. Jones who agrees with plan Code(s): K56.609 - UNSP INTESTNL OBST, UNSP TO PARTIAL VERSUS COMPLETE OBST <Rafi Torrez - Last Filed: 08/04/20 10:48>
[2020-08-04] MEDS: FAMOTIDINE 20 MG/50 ML IVPB 20 MG/50 ML MG IVPB SCH ×2 (14:46→21:42)
[2020-08-04] MEDS: LORazepam 2 MG/ML SDV VIAL IVPUSH PRN (21:40)
[2020-08-05] MEDS: AMINO ACIDS 4.25%/D5W 1,000 ML IV SCH (03:08)
[2020-08-05 08:19] LABS: BASO % 0.5 % (0-2.0); EOS % 2.4 % (0-4.5); HEMATOCRIT 40.7 % (35.4-49); HEMOGLOBIN 14.5 GM/dL (11.7-16.9); LYMPH % 26.7 % (8-40); MCH 30.6 pg (25.7-33.7); MCHC 35.8 g/dl (32.0-35.9); MEAN CELL VOLUME 85.6 fl (80-96); MEAN PLT VOLUME 8.2 fl (7.5-11.1); MONO % 11.1 % (3.8-10.2); NEUT % 59.3 % (42.8-82.8); PLATELET COUNT 226 K/MM3 (134-434); RBC 4.75 M/mm3 (4.00-5.60); RDW 12.7 % (11.9-15.9); WHITE BLOOD COUNT 6.4 K/mm3 (4.0-10.0)
--- NOTE | 2020-08-05 08:24 | PN ---
Progress Note, Physician History of Present Illness: Patient is a 59 year old male with a past medical history of hld and RLQ hernia repair apx 20 years ago. He presents to the ED on 07/31/2020 from urgent care for suspected SBO. - Current Medication List Current Medications: Active Medications Famotidine/Sodium Chloride (Pepcid 20 Mg Premixed Ivpb -) 20 mg in 50 mls @ 100 mls/hr IVPB BID LIZ Last Admin: 08/04/20 21:42 Dose: 100 mls/hr Documented by: Amino Acids (Clinimix -) 1,000 mls @ 84 mls/hr IV Q12H LIZ Last Admin: 08/05/20 03:08 Dose: 84 mls/hr Documented by: Lorazepam (Ativan Injection -) 0.5 mg IVPUSH Q6H PRN PRN Reason: ANXIETY Last Admin: 08/04/20 21:40 Dose: 0.5 mg Documented by: Ondansetron HCl (Zofran Injection) 4 mg IVPUSH Q6H PRN PRN Reason: NAUSEA Last Admin: 08/02/20 03:12 Dose: 4 mg Documented by: - Objective Vital Signs: Vital Signs Temperature 98.6 F 08/05/20 06:10 Pulse Rate 56 L 08/05/20 06:10 Respiratory Rate 20 08/05/20 06:10 Blood Pressure 126/66 08/05/20 06:10 O2 Sat by Pulse Oximetry (%) 97 08/05/20 06:10 Labs: INR, PTT INR 1.08 (0.83-1.09) 07/31/20 21:00 - ....Imaging Other: Other (07/31 abd/pelvis CT w/contrast: high grade distal sbo. RLQ distal ileal bowel loops demonstrate collapsed appearance. small amt of mesenteric fluid seen. 102: abdominal xray (flat and upright): SBO 3: abdominal xray (flat and upright): SBO or high grade partial sbo 4: SBO or high grade sbo 5: partial sbo) Problem List - Problems (1) Prophylactic measure Code(s): Z29.9 - ENCOUNTER FOR PROPHYLACTIC MEASURES, UNSPECIFIED (2) COVID-19 ruled out Code(s): Z03.818 - ENCNTR FOR OBS FOR SUSP EXPSR TO OTH BIOLG AGENTS RULED OUT (3) Abdominal pain Code(s): R10.9 - UNSPECIFIED ABDOMINAL PAIN (4) HLD (hyperlipidemia) Code(s): E78.5 - HYPERLIPIDEMIA, UNSPECIFIED (5) SBO (small bowel obstruction) Code(s): K56.609 - UNSP INTESTNL OBST, UNSP TO PARTIAL VERSUS COMPLETE OBST
[2020-08-05 08:39] LABS: ALBUMIN 3.1 g/dl (3.4-5.0); BILIRUBIN,TOTAL 0.5 mg/dL (0.2-1); CALCIUM 8.7 mg/dL (8.5-10.1); CREATININE 0.6 mg/dL (0.55-1.3); POTASSIUM 3.7 mmol/L (3.5-5.1); TOT PROT 5.9 g/dl (6.4-8.2)
[2020-08-05] MEDS: FAMOTIDINE 20 MG/50 ML IVPB 20 MG/50 ML MG IVPB SCH (10:08)
--- NOTE | 2020-08-05 11:07 | PN ---
Progress Note (short form) - Note Progress Note: Pt seen and examined. Reports he is feeling well. Has been oob ambulating the halls for 45 mins at a time. Tolerating clears. Had multiple "regular" bowel movements yesterday, overnight and this AM. Passing flatus. Denies cp/sob, n/v/d. Vital Signs Temp 98.6 F 08/05/20 06:10 Pulse 56 L 08/05/20 06:10 Resp 20 08/05/20 06:10 BP 126/66 08/05/20 06:10 Pulse Ox 97 08/05/20 06:10 Intake & Output 08/04/20 08/04/20 08/05/20 11:59 23:59 11:59 Intake Total 1050 554 974 Balance 1050 554 974 Intake: IV 1000 504 924 clinimix 1000 504 924 IVPB 50 50 50 Oral 0 Other: Voiding Method Toilet Toilet Toilet # Unmeasured Voids Void 3 Bowel Movement Yes # Bowel Movements 1 CBC, BMP 08/05/20 07:23 08/05/20 06:00 Gen: awake, alert, nad Resp: unlabored on RA Abdo: soft, nd, nt, + bowel sounds in all 4 quadrants A/P: 59 y/o M w/ PMHx HLD and hernia repair ~20 years ago, reporting to the ED at the behest of urgent care for a suspected sbo. afebrile, vss -regular (vegetarian diet) ordered -if tolerating can be d/c later today -if d/c'ed today pt should f/u in the office in [address] Jones d/w attending <Wes Butler - Last Filed: 08/05/20 11:18> - Note Progress Note: Attending Surgeon: I personally saw and examined the patient. My examination reveals a patient with a small bowel obstruction. I discussed the case with the surgical PA and agree with their findings and plan of care with any exceptions as noted. ~ Cooper Jones MD, FACS <Cooper Jones - Last Filed: 08/08/20 16:16>
--- NOTE | 2020-08-05 13:43 | DS ---
Physical Exam: SUBJECTIVE: Patient seen and examined OBJECTIVE: Vital Signs Period Temp Pulse Resp BP Sys/Collier Pulse Ox Last 24 Hr 97.8 F-98.6 F 56-64 20-20 126-131/66-79 97-99 PHYSICAL EXAM GENERAL: The patient is awake, alert, and fully oriented, in no acute distress. HEAD: Normal with no signs of trauma. EYES: PERRL, extraocular movements intact, sclera anicteric, conjunctiva clear. ENT: Ears normal, nares patent, oropharynx clear without exudates, moist mucous membranes. NECK: Trachea midline, full range of motion, supple. LUNGS: Breath sounds equal, clear to auscultation bilaterally, no wheezes, no crackles, no accessory muscle use. HEART: Regular rate and rhythm, S1, S2 without murmur, rub or gallop. ABDOMEN: Soft, nontender, nondistended, normoactive bowel sounds, no guarding, no rebound, no hepatosplenomegaly, no masses. EXTREMITIES: 2+ pulses, warm, well-perfused, no edema. NEUROLOGICAL: Cranial nerves II through XII grossly intact. Normal speech, gait not observed. PSYCH: Normal mood, normal affect. SKIN: Warm, dry, normal turgor, no rashes or lesions noted. LABS Laboratory Results - last 24 hr 08/05/20 08/05/20 06:00 07:23 WBC 6.4 RBC 4.75 Hgb 14.5 Hct 40.7 MCV 85.6 MCH 30.6 MCHC 35.8 RDW 12.7 Plt Count 226 MPV 8.2 Absolute Neuts (auto) 3.8 Neutrophils % 59.3 Lymphocytes % 26.7 Monocytes % 11.1 H Eosinophils % 2.4 Basophils % 0.5 Nucleated RBC % 0 Sodium 141 Potassium 3.7 Chloride 107 Carbon Dioxide 28 Anion Gap 6 L BUN 10.0 Creatinine 0.6 Est GFR (CKD-EPI)AfAm 125.77 Est GFR (CKD-EPI)NonAf 108.52 Random Glucose 107 H Calcium 8.7 Magnesium 2.0 Total Bilirubin 0.5 AST 16 ALT 26 Alkaline Phosphatase 71 Total Protein 5.9 L Albumin 3.1 L HOSPITAL COURSE: Date of Admission:07/31/20 Date of Discharge: 08/05/20 Minutes to complete discharge: 35 Discharge Summary Problems reviewed: Yes Reason For Visit: SMALL BOWEL OBSTRUCTION Current Active Problems Abdominal pain (Acute) COVID-19 ruled out (Acute) DVT prophylaxis (Acute) HLD (hyperlipidemia) (Acute) Prophylactic measure (Acute) SBO (small bowel obstruction) (Acute) Condition: Improved - Instructions Diet, Activity, Other Instructions: DISCHARGE YOUR VISIT You came to the hospital because you had a bowel obstruction/ileus. This improved with rest of the bowel. You are now tolerating a regular diet. Eat a bland diet for the next few days-avoid and heavy foods. MEDICATIONS Please continue to take your home medications as prescribed. There was no changes DIET Continue your home diet. Eat a bland diet for the next few days-avoid and heavy foods. ADDITIONAL CARE Please make an appointment to with Dr Jones, 2 week from today. ADDITIONAL INFORMATION Please call 911 or come directly to the emergency department if you experience unusual headache, vision change, shortness of breath, chest pain, numbness, tingling, loss of alertness/awareness, loss of function, unusual bleeding or any alarming symptoms. Thank you for allowing me to care for you. Amor Farnsworth, [facility], [facility] [phone] Referrals: Chris Lopez MD [Primary Care Provider] - Cooper Jones MD [Staff Physician] - 2 Weeks Disposition: HOME - Home Medications Comprehensive Discharge Medication List: Ambulatory Orders Rosuvastatin [Crestor -] 5 mg PO HS 08/01/20 Prescription Drug Monitoring Program (I-STOP) results: I-STOP not reviewed Problem List - Problems (1) Prophylactic measure Code(s): Z29.9 - ENCOUNTER FOR PROPHYLACTIC MEASURES, UNSPECIFIED (2) COVID-19 ruled out Code(s): Z03.818 - ENCNTR FOR OBS FOR SUSP EXPSR TO OTH BIOLG AGENTS RULED OUT (3) Abdominal pain Assessment/Plan: resolved ileus resolved with bowel rest to f/u with Dr Jones in 2 weeks Code(s): R10.9 - UNSPECIFIED ABDOMINAL PAIN (4) HLD (hyperlipidemia) Assessment/Plan: c/w crestor Code(s): E78.5 - HYPERLIPIDEMIA, UNSPECIFIED (5) SBO (small bowel obstruction) Assessment/Plan: resolved Code(s): K56.609 - UNSP INTESTNL OBST, UNSP TO PARTIAL VERSUS COMPLETE OBST This patient is new to me today: Yes Date on this admission: 08/05/20 Emergency Visit: Yes ED Registration Date: 07/31/20 Care time: The patient presented to the Emergency Department on the above date and was hospitalized for further evaluation of their emergent condition. Critical Care patient: No - Discharge Referral Referred to [facility] No
[2020-08-05 15:11] VITALS: BP 130/86; PULSE 77; TEMP 97.9
== END 2020-08-05 15:17 | disposition home or self-care (01) | DRG 390 ==
LOC: JER 19:36 → JERBED 23:12 → J6S 08-01 02:29
PROVIDERS: ADMIT Internal Medicine; ATTEND Nurse Practitioner Acute Care
PROC: 0D9670Z Drainage of Stomach with Drainage Device, Via Natural or Artificial Opening (ICD-10-PCS; principal; 2020-07-31)
DX: K56.609 Unspecified intestinal obstruction, unspecified as to partial versus complete obstruction (principal); K56.7 Ileus, unspecified; E78.5 Hyperlipidemia, unspecified; R10.31 Right lower quadrant pain
CPT/HCPCS: 36415; 71045-TC-FY; 74019-TC-FY; 74177-TC; 74240-TC-FY; 80053; 81003; 83690; 83735; 84100; 85025; 85610; 85730; 86850; 86900; 86901; 93005; 93010; 99285-25; U0003

== ENCOUNTER 2025-08-23 16:41 | Inpatient (IN) | payer OTHER, MEDICARE ==
[2025-08-23 16:57] VITALS: BMI 25.0
[2025-08-23] MEDS: LACTATED RINGERS SOLUTION 1000 ML INFUS.BAG IV ONE ×2 (17:18→18:57)
[2025-08-23] MEDS ORDERED: ACETAMINOPHEN INJECTION 100 ML ONE (17:18)
[2025-08-23] MEDS ORDERED: ONDANSETRON 4 MG/2 ML VIAL ONE (17:19)
[2025-08-23 17:28] LABS: ABSOLUTE IMMATURE GRANULOCYTES 0.03 x10^3/uL (0.0-0.031); BASOPHILS # 0.06 x10^3/uL (0.01-0.08); EOSINOPHIL % 0.7 % (0.8-7.0); EOSINOPHILS # 0.09 x10^3/uL (0.04-0.54); MCHC 34.4 g/dl (32.3-36.5); MEAN CELL VOLUME 91.5 fl (79.0-92.2); MEAN PLT VOLUME 9.7 fl (9.4-12.4); MONOCYTE # 0.98 x10^3/uL (0.30-0.82); MONOCYTE % 7.6 % (5.3-12.2); RDW 12.6 % (12.2-16.4)
[2025-08-23] MEDS: ACETAMINOPHEN 1000 MG/100 ML BAG IVPB ONE (17:34)
[2025-08-23 17:35] LABS: INR 0.99 (0.83-1.09); PROTHROMBIN TIME (PATIENT) 10.9 SEC (9.7-13.0)
[2025-08-23] MEDS: ONDANSETRON 4 MG/2 ML VIAL IVPB ONE (17:35)
[2025-08-23 17:38] LABS: ACTIVATED PTT 24.9 SECONDS (25.2-36.5)
[2025-08-23 17:44] LABS: GLUCOSE,RANDOM 118.0 mg/dL (74-106); TOT PROT 6.6 g/dl (6.4-8.2)
[2025-08-23 17:45] LABS: CO2 23.0 mmol/L (21-32)
[2025-08-23 17:47] LABS: ALK PHOS 96.0 U/L (40-150)
[2025-08-23 17:49] LABS: SGOT/AST 26.0 U/L (5-34); SGPT/ALT 26.0 U/L (0-55)
[2025-08-23 17:50] LABS: CREATININE 0.8 mg/dL (0.55-1.3)
[2025-08-23] MEDS ORDERED: KCL 10 MEQ IVPB 10 MEQ/100 ML INFUS.BAG IVPB ONE ×3 (18:26→21:49)
[2025-08-23] MEDS: KCL 10 MEQ IVPB 10 MEQ/100 ML INFUS.BAG IVPB SCH (18:57)
[2025-08-24] MEDS: DEXTROSE 5%-LACTATED RINGERS 1,000 ML IV SCH (01:42)
[2025-08-24] MEDS ORDERED: KETOROLAC TROMETHAMINE 15 MG/ML VIAL IVPUSH PRN (04:01)
[2025-08-24] MEDS: ACETAMINOPHEN 1000 MG/100 ML BAG IVPB SCH (04:43)
[2025-08-24] MEDS: IOHEXOL (OMNIPAQUE PO) 12 MG/ML - 500 ML BOTTLE PO ONE (05:13)
[2025-08-24 08:48] LABS: MCHC 34.1 g/dl (32.3-36.5); MEAN CELL VOLUME 93.9 fl (79.0-92.2); MEAN PLT VOLUME 9.5 fl (9.4-12.4); RDW 12.9 % (12.2-16.4)
[2025-08-24 10:17] LABS: GLUCOSE,RANDOM 90.0 mg/dL (74-106)
[2025-08-24 10:18] LABS: TOT PROT 5.2 g/dl (6.4-8.2)
[2025-08-24 10:19] LABS: CO2 25.0 mmol/L (21-32)
[2025-08-24 10:20] LABS: ALK PHOS 88.0 U/L (40-150)
[2025-08-24 10:23] LABS: CREATININE 0.62 mg/dL (0.55-1.3); SGOT/AST 21.0 U/L (5-34); SGPT/ALT 17.0 U/L (0-55)
[2025-08-24 20:58] VITALS: RESP 18
[2025-08-25 10:02] VITALS: BP 138/89; PULSE 67; TEMP 97.3
[2025-08-27] MEDS ORDERED: FLU VACC TS2025-26(6MOS UP)/PF 45 MCG/0.5 ML SYRINGE IM ONE (09:00)
[2025-08-27] MEDS ORDERED: PNEUMOC 20-VAL CONJ-DIP CRM/PF 0.5 ML SYRINGE IM ONE (09:00)
== END 2025-08-25 14:36 | disposition home or self-care (01) | DRG 390 ==
LOC: JER 16:41 → JERBED 21:41 → J5S 23:48
PROVIDERS: ADMIT Student in an Organized Health Care Education/Training Program
DX: K56.609 Unspecified intestinal obstruction, unspecified as to partial versus complete obstruction (principal); C61 Malignant neoplasm of prostate; E78.5 Hyperlipidemia, unspecified; J02.9 Acute pharyngitis, unspecified; E87.6 Hypokalemia; R11.2 Nausea with vomiting, unspecified
CPT/HCPCS: 36415; 71045-TC-FY; 71260-TC; 74018-TC-FY; 74177-TC; 80053; 82962; 83605; 83690; 83735; 84100; 84484; 85025; 85027; 85610; 85730; 93005; 93010; 99285-25; Q9967